=== PATIENT | male | born 1985 | race Caucasian/White ===

== ENCOUNTER 2024-07-01 13:01 | Emergency (ER) | payer MEDICAID ==
[~2024-07-01] VITALS: Ht 170.2 cm; Wt 72.3 kg
[~2024-07-01 13:01] MED LIST: ATEN-169 PO; HYDR1TAB PO; NAPR-762 PO; RANI-327 PO; REM15T PO; SERT-153 PO; [UNRECOGNIZED DRUG - CODE] PO; marijuana
[2024-07-01 13:14] VITALS: BP 140/82; PULSE 139; RESP 20; TEMP 97.9; O2SAT 100
== END 2024-07-01 13:46 ==
LOC: ER 13:02
DX: F15.10 Other stimulant abuse, uncomplicated (principal); F12.90 Cannabis use, unspecified, uncomplicated; R00.0 Tachycardia, unspecified; Z02.89 Encounter for other administrative examinations; Z88.2 Allergy status to sulfonamides; Z88.1 Allergy status to other antibiotic agents
CPT/HCPCS: 82948; 93005; 99283